=== PATIENT | female | born 2005 | race Hispanic/Latino ===

== ENCOUNTER 2023-01-01 06:35 | Day surgery (SDC) | payer OTHER, MEDICAID ==
[2022-12-31 10:50] LABS: BASOPHILS # (AUTO) 0.03 K/uL (0.00-0.20); BASOPHILS % (AUTO) 0.2 % (0.0-5.0); EOSINOPHILS # (AUTO) 0.26 K/uL (0.00-0.70); EOSINOPHILS % (AUTO) 1.9 % (0.0-8.0); HEMATOCRIT 40.4 % (36-48); IMMATURE GRANULOCYTE ABSOLUTE 0.14 K/uL (0-1); LYMPHOCYTES # (AUTO) 2.1 K/uL (1.0-4.8); LYMPHOCYTES % (AUTO) 15.6 % (21.0-51.0); MEAN CORPUSCULAR HEMOGLOBIN 28.1 pg (27.0-33.0); MEAN CORPUSCULAR HGB CONC 33.4 g/dL (32.0-36.0); MEAN CORPUSCULAR VOLUME 84.2 fL (80-100); MONOCYTES # (AUTO) 0.6 K/uL (0.1-1.0); MONOCYTES % (AUTO) 4.7 % (3.0-13.0); NEUTROPHILS # (AUTO) 10.3 K/uL (1.8-7.7); NEUTROPHILS % (AUTO) 76.6 % (40.0-77.0); PLATELET COUNT (AUTO) 284 K/uL (130-400); RED CELL DISTRIBUTION WIDTH 12.9 % (11.0-15.5); WHITE BLOOD COUNT (AUTO) 13.5 K/uL (4.8-10.8)
[2022-12-31 11:05] VITALS: BP 138/83; PULSE 92; RESP 15
[~2023-01-01] VITALS: Ht 160 cm; Wt 113.4 kg
[~2023-01-01 06:35] MED LIST: PRENATAL PO
[2023-01-01] MEDS ORDERED: LACTATED RINGERS 1000ML 1,000 ML IV ONE (06:47)
[2023-01-01] MEDS ORDERED: CEFAZOLIN SODIUM 2 GM VIAL ONE (06:47)
[2023-01-01 07:05] VITALS: BP 159/94; PULSE 116; RESP 16
[2023-01-01] MEDS ORDERED: CEFAZOLIN SODIUM 2 GM VIAL IVPB ONE (07:28)
[2023-01-01] MEDS ORDERED: ONDANSETRON 4MG INJ ONE (08:09)
== END 2023-01-01 14:00 | disposition home or self-care (01) ==
LOC: DAH 06:35
PROVIDERS: ATTEND Obstetrics & Gynecology
DX: O34.32 Maternal care for cervical incompetence, second trimester (principal); O99.212 Obesity complicating pregnancy, second trimester; O09.292 Supervision of pregnancy with other poor reproductive or obstetric history, second trimester; E66.01 Morbid (severe) obesity due to excess calories; Z3A.14 14 weeks gestation of pregnancy
CPT/HCPCS: 85025; 86850; 86900; 86901; 36415; 59320; A4663; J7120 ×2; J2405; J0690 ×2; A4215; A4223; A4222; A4221; A4600